=== PATIENT | male | born 1980 | race African-American/Black ===

== ENCOUNTER 2018-11-22 21:22 | Emergency (ER) | payer MEDICAID ==
[~2018-11-22] VITALS: Ht 203.2 cm; Wt 102.0 kg
[2018-11-23] MEDS ORDERED: BACITRACIN ZINC OINT UDPKT TOP ONE (00:15)
[2018-11-23] MEDS ORDERED: LIDOCAINE HCL/PF 1% 10 MG/ML 5ML VIAL IJ ONE (00:15)
[2018-11-23] MEDS ORDERED: BACITRACIN 15GM TUBE TOP NR (02:15)
[2018-11-23 02:57] VITALS: BP 134/77
== END 2018-11-23 02:58 | disposition home or self-care (01) ==
LOC: ER 21:22
DX: S61.210A Laceration without foreign body of right index finger without damage to nail, initial encounter (principal); W25.XXXA Contact with sharp glass, initial encounter; Y93.89 Activity, other specified; Y92.89 Other specified places as the place of occurrence of the external cause; Y99.8 Other external cause status
CPT/HCPCS: 12001; 99283; J3490; Z7610